=== PATIENT | male | born 1985 | race Caucasian/White ===

== ENCOUNTER → 2017-01-09 | Outpatient (REF) | LOC: WSOH 16:30 | DX: Z02.89 Encounter for other administrative examinations (principal) ==

== ENCOUNTER → 2018-09-16 | Outpatient (CLI) | payer OTHER | LOC: COL.LAB 08:09 | DX: J30.2 Other seasonal allergic rhinitis (principal) ==

== ENCOUNTER → 2018-09-23 | Outpatient (CLI) | payer OTHER | LOC: COL.RAD 10:50 | DX: J34.89 Other specified disorders of nose and nasal sinuses (principal) ==

== ENCOUNTER → 2018-09-30 | Outpatient (CLI) | payer OTHER | LOC: COL.RAD 13:46 | DX: R51 Headache (principal) ==

== ENCOUNTER → 2020-03-06 | Outpatient (CLI) | payer OTHER | LOC: COL.RAD 08:48 | DX: K21.9 Gastro-esophageal reflux disease without esophagitis (principal) ==